=== PATIENT | male | born 1985 | race Two or more races ===

== ENCOUNTER 2020-04-19 14:14 | Emergency (ER) | payer OTHER ==
[~2020-04-19] VITALS: Ht 177.8 cm; Wt 97.5 kg
[2020-04-19 15:12] VITALS: BP 124/88
== END 2020-04-19 15:58 | disposition home or self-care (01) ==
LOC: ER 14:14
DX: S63.635A Sprain of interphalangeal joint of left ring finger, initial encounter (principal); X37.1XXA Tornado, initial encounter; Y93.89 Activity, other specified; Y92.89 Other specified places as the place of occurrence of the external cause; Y99.8 Other external cause status
CPT/HCPCS: 73130